=== PATIENT | female | born 1960 | race Caucasian/White ===

== ENCOUNTER 2018-09-22 12:15 | Day surgery (SDC) | payer OTHER ==
[2018-09-22] MEDS ORDERED: FENTAnyl 50 MCG/ML VIAL (14:14)
[2018-09-22] MEDS ORDERED: LIDOCAINE 100 MG SYRINGE (14:14)
[2018-09-22] MEDS ORDERED: PROPOFOL 40 ML (14:14)
== END 2018-09-22 15:33 | disposition home or self-care (01) ==
LOC: GIL 12:15
DX: K64.8 Other hemorrhoids (principal); E11.9 Type 2 diabetes mellitus without complications; I10 Essential (primary) hypertension; E78.00 Pure hypercholesterolemia, unspecified; K52.9 Noninfective gastroenteritis and colitis, unspecified
CPT/HCPCS: 45378; 82962